=== PATIENT | male | born 2000 | race Caucasian/White ===

== ENCOUNTER 2021-06-14 21:16 | Emergency (ER) | payer OTHER, SELFPAY ==
[2021-06-14 21:17] VITALS: BP 144/85; PULSE 93; RESP 16; TEMP 36.1; O2SAT 98; BMI 25.1
--- NOTE | 2021-06-14 21:45 | RAD_ITS ---
STUDY: X-RAY - RIGHT ANKLE REASON FOR EXAM: Male, 21 years old. Injury/Pain TECHNIQUE: 3 view(s) of the ankle. COMPARISON: None. FINDINGS: Normal visualized distal tibia and fibula. Normal medial and lateral malleoli. Normal tibiotalar articulation and ankle mortise. Normal visualized talus and calcaneus. The visualized subtalar, talonavicular, calcaneocuboid and tarsal articulations are normal. There is no demonstrated fracture. Mild soft tissue swelling is present over the lateral malleolus. Linear vascular impression is seen in the cortex of the distal one third fibula. RAD/Ankle min 3 Views IMPRESSION: Mild soft tissue swelling over the lateral malleolus Electronically Signed: Guanako White MD at 23:08 EST ,
--- NOTE | 2021-06-14 22:11 | ED.VIS.LOWEX ---
HPI History of Present Illness Chief Complaint: Lower Extremity Injury Detail of Chief Complaint: Rolled my right ankle doing gymnastics Informant: patient Occured/Mechanism Mechanism/Context: Yes blunt trauma Onset/Context/Timing Onset: Hours Context: Sudden Onset Timing: Continuous Quality of Pain: Dull and Aching Current Severity: Mild Maximum Severity: Moderate Worsened by: Movement and weightbearing Relieved by: Rest Associated Symptoms Associated Symptoms: Negative for Parasthesia, Weakness and Loss of Funtion Narrative Narrative: Patient is a 21-year-old male who was attempting to do gymnastic maneuvers. He rolled his ankle. He is injured his ankle in the past. Is never had a fracture. He denies paresthesia, anesthesia motors. He denies head trauma, neck pain, torso trauma, shortness of breath or difficulty breathing. Prior similar symptoms: Yes Recent Illness/Hospitalization: No PFSH PFSH Medical History no medical history no medical history Home Medications naproxen 500 mg PO BID #14 tab 06/14/21 [Rx Last Taken Unknown] Allergy/AdvReac Type Severity Reaction Status Date / Time No Known Allergies Allergy Verified 06/14/21 21:18 Social History (Updated 06/14/21 @ 22:[address] Driss Luo MD) Smoking Status: Never smoker substance use type: does not use ROS ROS ED Constitutional Constitutional ED: Denies chills, fever(s), subjective or sweats Musculoskeletal Musculoskeletal: Reports other Details: Right ankle pain ; Denies arthralgias, back pain, myalgias or neck pain Neurologic Neurologic: Denies paresthesias or weakness Hematologic/Lymphatic Hematologic/Lymphatic: Denies easy bleeding or easy bruising EXAM Physical Exam Const Vital Signs: 06/14/21 21:17 Temperature 96.9 F L Temperature Source Temporal Pulse Rate 93 Respiratory Rate 16 Blood Pressure 144/85 H Blood Pressure Mean 104 Pulse Ox 98 Oxygen Delivery Method Room Air Positive well nourished and well developed General Appearance ED: well developed and NAD HEENT normocephalic and atraumatic Eyes PERRL Neck full ROM Resp normal respiratory effort Cardio regular rate and regular rhythm Extremity Negative for normal to inspection or full ROM Extremity Narrative: There is significant swelling over the lateral malleolus. This pain ovation of the distal 4 cm of the lateral malleolus on the right. There is no lax with drawer testing. Is no pain the patient over the medial malleolus. There is no pain ovation over the base of the fifth metatarsal. DP and PT pulse are palpable. General Extremety ED: Yes weight-bearing difficulty; Negative for cyanosis or edema General Extremity: weight-bearing difficulty; Negative for cyanosis or edema Neuro oriented x3, CN's II-XII intact bilaterally and no sensory deficits noted Sensorium / Orientation: alert Motor Exam: strength 5/5 throughout Psych mental status grossly normal Skin no wounds Lesions: no lesions Rashes: no rashes MDM MDM MDM Narrative Medical decision making narrative: X-ray of the ankle was obtained to evaluate for fracture versus sprain. Per the [place] ankle rule imaging is required. Radiography X-Ray: - (Three-view x-ray of the right ankle reveals soft tissue swelling with no evidence of fracture, subluxation or dislocation.) Discharge Plan Triage Chief Complaint: Lower Extremity Injury ED Provider: Driss Luo Dx/Rx/DC Orders Clinical Impression: Moderate right ankle sprain Instructions: ED Ankle Sprain (Adult) Prescriptions: New naproxen 500 MG tablet 500 mg PO BID Qty: 14 RF: 0 Primary Care Provider: Pete Salinas NP Referrals: Pete Salinas [facility] SPINNER, [facility] [Primary Care Provider] - 1 Week if not improving Activity Restrictions/Additional Instructions: Wear air splint during the day Remove air splint to draw the alphabet 4-6 times a day Apply ice 6-8 times a day Avoid going up inclines or ladders until you are pain-free Disposition Disposition: Home, Self Care
[2021-06-14] MEDS: Naproxen 250 MG Tablet 500 MG PO (22:38)
== END 2021-06-14 22:42 | disposition home or self-care (01) ==
PROVIDERS: Emergency Provider Emergency Medicine; PCP Nurse Practitioner Family; Visit Provider Emergency Medicine
DX: S93.401A Sprain of unspecified ligament of right ankle, initial encounter (principal); X50.1XXA Overexertion from prolonged static or awkward postures, initial encounter; Y93.43 Activity, gymnastics
CPT/HCPCS: 73610; 99283